=== PATIENT | female | born 1980 | race Caucasian/White ===

== ENCOUNTER 2017-08-12 08:00 | Outpatient (RCR) | payer MEDICARE | END 2017-08-15 | LOC: WSPT | DX: M54.5 Low back pain (principal); Z87.891 Personal history of nicotine dependence | CPT/HCPCS: G0283-GP; G8978-GP; G8979-GP ==

== ENCOUNTER 2017-09-20 08:00 | Outpatient (RCR) | payer MEDICARE | END 2017-10-25 08:45 | disposition home or self-care (01) | LOC: WSPT 08:00 | DX: M54.5 Low back pain (principal) | CPT/HCPCS: G8979-GP; G8980-GP ==

== ENCOUNTER 2020-07-12 14:00 | Outpatient (RCR) | payer MEDICARE | END 2020-09-19 | disposition home or self-care (01) | LOC: WSPT | DX: M25.561 Pain in right knee (principal) ==

== ENCOUNTER → 2020-12-09 | Outpatient (CLI) | payer MEDICARE | LOC: MC.RAD | DX: Z12.31 Encounter for screening mammogram for malignant neoplasm of breast (principal) ==

== ENCOUNTER → 2022-03-20 | Outpatient (CLI) | payer MEDICARE | LOC: MC.RAD 08:03 | DX: Z12.31 Encounter for screening mammogram for malignant neoplasm of breast (principal) ==

== ENCOUNTER → 2024-03-23 | Outpatient (CLI) | payer MEDICARE | LOC: MC.RAD 07:30 | DX: Z12.31 Encounter for screening mammogram for malignant neoplasm of breast (principal) ==